=== PATIENT | male | born 1955 | race Caucasian/White ===

== ENCOUNTER 2018-07-11 13:06 | Emergency (ER) | payer MEDICAID ==
[~2018-07-11] VITALS: Ht 167.6 cm; Wt 78.7 kg
[2018-07-11 13:12] VITALS: Ht 167.6 cm; Wt 78.7 kg
--- NOTE | 2018-07-11 13:51 | ERD ---
ER Documentation Chief Complaint Chief Complaint fever x 2 days HPI The patient is a 63-year-old male, presenting to the ER because of fever, nausea, painful urination, intermittent cough for the last day. He denies chest pain, dyspnea, abdominal pain, vomiting, diarrhea. He does not smoke nor drink Past medical history: Hypertension Past surgical history: None ROS All systems reviewed and are negative except as per history of present illness. Medications Home Meds Active Scripts Ibuprofen* (Motrin*) 600 Mg Tab, 600 MG PO Q6H PRN for PAIN AND OR ELEVATED TEMP, #30 TAB Prov:BEATRICE PATRICIO MD 07/11/18 Azithromycin* (Zithromax*) 250 Mg Tablet, 250 MG PO .ZPACK DIRECTED, #6 TAB TAKE 500 MG (2 TABS) THE FIRST DAY THEN 250 MG (1 TAB) DAYS 2-5 Prov:BEATRICE PATRICIO MD 07/11/18 Amoxicillin/Potassium Clav (Amox-Clav 875-125 mg Tablet) 875-125 mg Tab, 1 TAB PO BID for 10 Days, #20 TAB Prov:BEATRICE PATRICIO MD 07/11/18 Reported Medications Ibuprofen* (Advil*) 200 Mg Capsule, 200 MG PO Q6H PRN for PAIN, CAP 07/11/18 Allergies Allergies: Coded Allergies: No Known Allergy (Unverified , 07/11/18) PMhx/Soc History of Surgery: No Anesthesia Reaction: No Hx Neurological Disorder: No Hx Respiratory Disorders: No Hx Cardiac Disorders: No Hx Psychiatric Problems: No Hx Miscellaneous Medical Probl: No Hx Alcohol Use: No Hx Substance Use: No Hx Tobacco Use: No Physical Exam Vitals Vital Signs Date Temp Pulse Resp B/P (MAP) Pulse Ox O2 O2 Flow FiO2 Time Delivery Rate 07/11/18 88 22 143/81 96 Room Air 16:30 (101) 07/11/18 100.6 14:29 07/11/18 100.6 113 20 165/88 96 13:12 (113) Physical Exam Const: No acute distress. Head: Atraumatic. Eyes: Normal Conjunctiva. ENT: Normal External Ears, Nose and Mouth. Neck: Full range of motion. No meningismus. Resp: Clear to auscultation bilaterally. Cardio: Regular rate and rhythm. Abd: Soft, non distended, normal bowel sounds, non tender. Skin: No petechiae or rashes. Back: No midline or flank tenderness. Ext: No cyanosis, or edema. Neur: Awake and alert. No focal deficit Psych: Normal Mood and Affect. Result Diagram: 07/11/18 1401 07/11/18 1401 Results 24 hrs Laboratory Tests Test 07/11/18 14:01 07/11/18 14:02 07/11/18 14:45 White Blood Count 9.4 10^3/ul Red Blood Count 4.88 10^6/ul Hemoglobin 15.1 g/dl Hematocrit 43.6 % Mean Corpuscular Volume 89.3 fl Mean Corpuscular Hemoglobin 30.9 pg Mean Corpuscular 34.6 g/dl Hemoglobin Concent Red Cell Distribution Width 12.0 % Platelet Count 196 10^3/UL Mean Platelet Volume 11.3 fl Immature Granulocytes % 0.400 % Neutrophils % 75.2 % Lymphocytes % 13.1 % Monocytes % 10.6 % Eosinophils % 0.2 % Basophils % 0.5 % Nucleated Red Blood Cells % 0.0 /100WBC Immature Granulocytes # 0.040 10^3/ul Neutrophils # 7.1 10^3/ul Lymphocytes # 1.2 10^3/ul Monocytes # 1.0 10^3/ul Eosinophils # 0.0 10^3/ul Basophils # 0.1 10^3/ul Nucleated Red Blood Cells # 0.0 10^3/ul Prothrombin Time 13.7 Sec Prothrombin Time Ratio 1.1 INR International 1.04 Normalized Ratio Activated Partial Thromboplast 29.1 Sec Time Sodium Level 140 mmol/L Potassium Level 3.7 mmol/L Chloride Level 103 mmol/L Carbon Dioxide Level 27 mmol/L Anion Gap 10 Blood Urea Nitrogen 9 mg/dl Creatinine 0.79 mg/dl Est Glomerular Filtrat > 60 mL/min Rate mL/min Glucose Level 109 mg/dl Calcium Level 9.3 mg/dl Total Bilirubin 0.5 mg/dl Direct Bilirubin 0.00 mg/dl Indirect Bilirubin 0.5 mg/dl Aspartate Amino Transf (AST/SGOT) 30 IU/L Alanine 41 IU/L Aminotransferase (ALT/SGPT) Alkaline Phosphatase 82 IU/L Troponin I < 0.012 ng/ml Total Protein 8.4 g/dl Albumin 4.5 g/dl Globulin 3.90 g/dl Albumin/Globulin Ratio 1.15 POC Venous Lactate 1.3 mmol/L Urine Color YELLOW Urine Clarity CLEAR Urine pH 6.0 Urine Specific [place] 1.014 Urine Ketones NEGATIVE mg/dL Urine Nitrite NEGATIVE mg/dL Urine Bilirubin NEGATIVE mg/dL Urine Urobilinogen NEGATIVE mg/dL Urine Leukocyte Esterase NEGATIVE Cel[place]/ul Urine Microscopic RBC 19 /HPF Urine Microscopic WBC 0 /HPF Urine Mucus FEW /HPF Urine Hemoglobin 2+ mg/dL Urine Glucose NEGATIVE mg/dL Urine Total Protein NEGATIVE mg/dl Current Medications Medications Dose Sig/Eric Start Time Status Last (Trade) Ordered Route PRN Stop Time Admin Dose Reason Admin Sodium 2,360 ml BOLUS OVER 2 07/11/18 DC 07/11/18 Chloride HOURS STAT 13:57 07/11/18 14:31 (NS) IV* 13:59 650 mg ONCE STAT 07/11/18 DC 07/11/18 Acetaminophen PO 13:57 07/11/18 14:29 (Tylenol 13:59 Tab) Procedures/MDM EKG: Read by emergency physician Rate/Rhythm: Normal Sinus Rhythm 96 beats/min QRS, ST, T-waves: No ST elevation, nonspecific T abn Impression: Abnormal EKG MEDICAL MAKING DECISION: The patient is a 63-year-old, presenting with acute pneumonia, was treated with Tylenol for fever, normosaline 30 mm/kg IV for cli nical dehydration with good response, is stable for outpatient follow-up The differential diagnoses considered include but are not limited to asthma, COPD, pneumonia, pulmonary embolus, pleural effusion, congestive heart failure. Departure Diagnosis: Primary Impression: PNA (pneumonia) Condition: Good Comments He was discharged with Augmentin and Zithromax I discussed the findings with the patient. I advised the patient to follow-up with the primary physician in about 2-3 days, sooner if needed and return if any concern. Disclaimer: Inadvertent spelling and grammatical errors are likely due to EHR/dictation software use and do not reflect on the overall quality of patient care. Also, please note that the electronic time recorded on this note does not necessarily reflect the actual time of the patient encounter. BEATRICE PATRICIO MD Jul 11, 2018 13:51
[2018-07-11] MEDS ORDERED: SODIUM CHLORIDE 0.9% 1L BAG IV* STA (13:57)
[2018-07-11] MEDS ORDERED: ACETAMINOPHEN 325 MG TAB PO STA (13:57)
[2018-07-11] MEDS ORDERED: IBUP200C11 PO (14:45)
[2018-07-11] MEDS ORDERED: AMOX1TAB10 PO (16:27)
[2018-07-11] MEDS ORDERED: AZIT250T PO (16:28)
[2018-07-11] MEDS ORDERED: IBUP-1542 PO (16:28)
[2018-07-11 16:30] VITALS: BP 143/81; PULSE 88; RESP 22
== END 2018-07-11 17:35 | disposition home or self-care (01) ==
LOC: E/R 13:06
DX: J18.9 Pneumonia, unspecified organism (principal); I10 Essential (primary) hypertension; R07.9 Chest pain, unspecified
CPT/HCPCS: 36415; 71045; 80053; 81001; 83605; 84484; 85025; 85610; 85730; 87040; 87086; 93005; J7030; Z7502; Z7610

== ENCOUNTER 2018-07-19 14:41 | Emergency (ER) | payer MEDICAID ==
[~2018-07-19] VITALS: Ht 162.6 cm; Wt 76.5 kg
[~2018-07-19 14:41] MED LIST: AMOX1TAB10 PO; AZIT250T PO; DIAZ5TAB PO; IBUP-1542 PO; IBUP200C11 PO; NAPR-688 PO
[2018-07-19 14:59] VITALS: BP 169/89; PULSE 87; RESP 18; Ht 162.6 cm; Wt 76.5 kg
[2018-07-19] MEDS ORDERED: BACI28.34 TOP (16:41)
[2018-07-19] MEDS ORDERED: DOCU-144 PO (16:41)
--- NOTE | 2018-07-19 19:40 | ERD ---
ER Documentation Chief Complaint Chief Complaint rectal bleeding X2 days, constipation HPI 63-year-old male with past medical history of hypertension presenting the emergency department complaining of mild blood noted on the toilet paper after bowel movements per the patient is also had constipation and straining with hard stool. Patient denies any abdominal pain, nausea, vomiting, fevers, or other symptoms at this time. Symptoms mild in severity. ROS All systems reviewed and are negative except as per history of present illness. Medications Home Meds Active Scripts Bacitracin* (Bacitracin Zinc Oint*) 28.35 Gm Oint, 1 APPLIC TOP BID, #1 TUB APPLI TO Prov:VALENTINO VIERA PA-C 07/19/18 Docusate Sodium* (Colace*) 100 Mg Capsule, 100 MG PO TID, #30 CAP Prov:VALENTINO VIERA PA-C 07/19/18 Diazepam* (Valium*) 5 Mg Tablet, 5 MG PO Q8 PRN for MUSCLE SPASMS, #20 TAB Prov:DANIS RICO PA-C 10/31/16 Naproxen* (Naproxen*) 500 Mg Tablet, 500 MG PO BID PRN for PAIN, #20 TAB Prov:DANIS RICO PA-C 10/31/16 Allergies Allergies: Coded Allergies: No Known Allergy (Unverified , 10/30/16) PMhx/Soc Medical and Surgical Hx: pt denies Medical Hx History of Surgery: No Hx Neurological Disorder: No Hx Respiratory Disorders: No Hx Cardiac Disorders: No Hx Psychiatric Problems: No Hx Miscellaneous Medical Probl: No Hx Alcohol Use: No Hx Substance Use: No Hx Tobacco Use: No Smoking Status: Never smoker FmHx Family History: No diabetes Physical Exam Vitals Vital Signs Date Temp Pulse Resp B/P (MAP) Pulse Ox O2 O2 Flow FiO2 Time Delivery Rate 07/19/18 98.8 87 18 169/89 97 14:59 (115) Physical Exam Const: No acute distress Head: Atraumatic Eyes: Normal Conjunctiva ENT: Normal External Ears, Nose and Mouth. Neck: Full range of motion. No meningismus. Resp: Clear to auscultation bilaterally Cardio: Regular rate and rhythm, no murmurs Abd: Soft, non tender, non distended. Normal bowel sounds. No rebound tenderness or guarding. No McBurney's point tenderness. RECTAL: Verbal Consent Obtained Sphincter tone is normal. No external hemorrhoids seen. Small anal fissure with mild active bleeding noted at the 12 o'clock position. Skin: No petechiae or rashes Ext: No cyanosis, or edema Neur: Awake and alert Psych: Normal Mood and Affect Procedures/MDM 63-year-old male presenting emergency department with signs and symptoms most consistent with an anal fissure secondary to constipation and straining during bowel movements. No evidence of external hemorrhoids. Patient stable and appropriate for discharge and further treatment as an outpatient. Patient agreed with the diagnosis, plan, need for follow-up, return precautions. No evidence of life-threatening pathology at time of discharge. Patient's blood pressure was elevated (>120/80) but appears stable without evidence of hypertension emergency or urgency. The patient is to follow-up and pursue outpatient monitoring and therapy with their primary care physician within 1 week and return immediately if they have any new, worsening, or concerning symptoms. Departure Diagnosis: Primary Impression: Constipation Additional Impression: Anal fissure Condition: Fair Patient Instructions: Constipation (Adult) [facility] Usted se hickman hecho un examen mdico de control que le indica que no est en jh c ondicin que requiera tratamiento urgente en el Departamento de Emergencia. Un estudio ms profundo y el tratamiento de perez condicin pueden esperar sin ningn riesgo hasta que usted sea atendida/o en el consultorio de perez mdico o jh clnica. Es responsabilidad suya arreglar jh tona para el seguimiento del sno. MANEJO DE CONDICIONES NO URGENTES EN EL FUTURO 1) Si usted tiene un mdico de atencin primaria: Usted debera llamar a perez mdico de atencin primaria antes de venir al departamento de emergencia. Despus de las horas de consultorio, perez doctor o perez asociado/a est disponible por telfono. El mdico o enfermero de tomas en el servicio telefnico puede asesorarle por rufus medio para atender el problema, o son contrario se puede programar jh tona. 2) Si usted no tiene un mdico de atencin primaria: Llame al mdico o clnica de referencia que aparece abajo genie las horas de consultorio para hacer jh tona para que le vean. CLINICAS: [facility] [phone] [facility] [phone] [facility] [phone] [facility]. [place] [phone] [facility]. [place] [id number] [phone] [facility]. [phone] [address] Additional Instructions: Llame al doctor MAANA y lalita jh TONA PARA DENTRO DE 1-2 CASEY.Dgale a la secretaria que nosotros le instruimos hacer esta tona.Avise o llame si perez condicin se empeora antes de la tona. Regresa aqui si peor o no mejor. VALENTINO VIERA PA-C Jul 19, 2018 19:39
== END 2018-07-19 17:13 | disposition home or self-care (01) ==
LOC: FTE 14:41 → MERGE 14:41 → FTE 17:13
DX: K59.00 Constipation, unspecified (principal); K60.2 Anal fissure, unspecified; I10 Essential (primary) hypertension
CPT/HCPCS: 99284

== ENCOUNTER 2018-09-01 21:24 | Emergency (ER) | payer MEDICAID ==
[~2018-09-01] VITALS: Wt 79.2 kg
[~2018-09-01 21:24] MED LIST changes: +BACI28.34 TOP; +DOCU-144 PO
[2018-09-01] MEDS ORDERED: SODIUM CHLORIDE 0.9% 1L BAG IV* STA (22:02)
--- NOTE | 2018-09-01 22:10 | ERD ---
ER Documentation Chief Complaint Chief Complaint FEVER/ VOMIT X'S 2 DAYS HPI 63-year-old male presenting with fever with associated nausea and diarrhea for the past 2 days. He denies any associated vomiting. No runny nose, cough, c hest pain, shortness of breath, or dysuria. Diarrhea is nonbloody. He denies any recent travel or other exposures. No sick contacts. He has only mild abdominal pain intermittently but currently denies any abdominal pain. He was recently diagnosed with pneumonia a few weeks ago but is denying any symptoms of pneumonia at this time. ROS All systems reviewed and are negative except as per history of present illness. Medications Home Meds Active Scripts Ondansetron (Ondansetron Odt) 4 Mg Tab.rapdis, 4 MG PO Q6H PRN for NAUSEA AND/OR VOMITING, #10 TAB Prov:SREE FERMIN MD 09/01/18 Ibuprofen* (Motrin*) 600 Mg Tab, 600 MG PO Q6H PRN for PAIN AND OR ELEVATED TEMP, #30 TAB Prov:SREE FERMIN MD 09/01/18 Ibuprofen* (Motrin*) 600 Mg Tab, 600 MG PO Q6H PRN for PAIN AND OR ELEVATED T EMP, #30 TAB Prov:BEATRICE PATRICIO MD 07/11/18 Discontinued Reported Medications Ibuprofen* (Advil*) 200 Mg Capsule, 200 MG PO Q6H PRN for PAIN, CAP 07/11/18 Discontinued Scripts Bacitracin* (Bacitracin Zinc Oint*) 28.35 Gm Oint, 1 APPLIC TOP BID, #1 TUB APPLI TO Prov:VALENTINO VIERA PA-C 07/19/18 Docusate Sodium* (Colace*) 100 Mg Capsule, 100 MG PO TID, #30 CAP Prov:VALENTINO VIERA PA-C 07/19/18 Azithromycin* (Zithromax*) 250 Mg Tablet, 250 MG PO .DwightPACK DIRECTED, #6 TAB TAKE 500 MG (2 TABS) THE FIRST DAY THEN 250 MG (1 TAB) DAYS 2-5 Prov:BEATRICE PATRICIO MD 07/11/18 Amoxicillin/Potassium Clav (Amox-Clav 875-125 mg Tablet) 875-125 mg Tab, 1 TAB PO BID for 10 Days, #20 TAB Prov:BEATRICE PATRICIO MD 07/11/18 Diazepam* (Valium*) 5 Mg Tablet, 5 MG PO Q8 PRN for MUSCLE SPASMS, #20 TAB Prov:DANIS RICO PA-C 10/31/16 Naproxen* (Naproxen*) 500 Mg Tablet, 500 MG PO BID PRN for PAIN, #20 TAB Prov:DANIS RICO PA-C 10/31/16 Allergies Allergies: Coded Allergies: No Known Allergy (Unverified , 09/01/18) PMhx/Soc Medical and Surgical Hx: pt denies Medical Hx, pt denies Surgical Hx History of Surgery: No Anesthesia Reaction: No Hx Neurological Disorder: No Hx Respiratory Disorders: No Hx Cardiac Disorders: No Hx Psychiatric Problems: No Hx Miscellaneous Medical Probl: No Hx Alcohol Use: No Hx Substance Use: No Hx Tobacco Use: No Smoking Status: Never smoker FmHx Family History: No diabetes Physical Exam Vitals Vital Signs Date Temp Pulse Resp B/P (MAP) Pulse Ox O2 O2 Flow FiO2 Time Delivery Rate 09/02/18 98.3 73 21 133/62 97 Room Air 00:15 (85) 09/01/18 77 18 151/69 97 Room Air 23:34 (96) 09/01/18 101.4 22:34 09/01/18 101.4 93 24 164/84 98 Nasal 2.0 22:18 (110) Cannula 09/01/18 Nasal 2 22:07 Cannula 09/01/18 103.1 114 16 169/69 95 21:42 (102) Physical Exam Const: No acute distress Head: Atraumatic Eyes: Normal Conjunctiva ENT: Normal External Ears, Nose and Mouth. Posterior oropharynx normal without erythema or exudate Neck: Full range of motion. No meningismus. Resp: Clear to auscultation bilaterally Cardio: Regular rate and rhythm, no murmurs Abd: Soft, non tender, non distended. Normal bowel sounds. negative Gutierrez sign. No McBurney's point tenderness Skin: No petechiae or rashes Back: No midline or flank tenderness Ext: No cyanosis, or edema Neur: Awake and alert, normal speech, no facial asymmetry, Psych: Normal Mood and Affect Result Diagram: 09/01/18214409/01/182144 Results 24 hrs Laboratory Tests Test 09/01/18 21:45 09/01/18 21:59 09/01/18 22:02 White Blood Count 12.1 10^3/ul Red Blood Count 4.69 10^6/ul Hemoglobin 14.3 g/dl Hematocrit 41.7 % Mean Corpuscular Volume 88.9 fl Mean Corpuscular Hemoglobin 30.5 pg Mean Corpuscular 34.3 g/dl Hemoglobin Concent Red Cell Distribution Width 12.4 % Platelet Count 184 10^3/UL Mean Platelet Volume 11.2 fl Immature Granulocytes % 0.400 % Neutrophils % 86.3 % Lymphocytes % 6.3 % Monocytes % 6.4 % Eosinophils % 0.3 % Basophils % 0.3 % Nucleated Red Blood Cells % 0.0 /100WBC Immature Granulocytes # 0.050 10^3/ul Neutrophils # 10.5 10^3/ul Lymphocytes # 0.8 10^3/ul Monocytes # 0.8 10^3/ul Eosinophils # 0.0 10^3/ul Basophils # 0.0 10^3/ul Nucleated Red Blood Cells # 0.0 10^3/ul Urine Color YELLOW Urine Clarity CLEAR Urine pH 5.0 Urine Specific [place] 1.020 Urine Ketones NEGATIVE mg/dL Urine Nitrite NEGATIVE mg/dL Urine Bilirubin NEGATIVE mg/dL Urine Urobilinogen NEGATIVE mg/dL Urine Leukocyte Esterase NEGATIVE Celso/ul Urine Microscopic RBC 34 /HPF Urine Microscopic WBC 0 /HPF Urine Hemoglobin 3+ mg/dL Urine Glucose NEGATIVE mg/dL Urine Total Protein NEGATIVE mg/dl Sodium Level 138 mmol/L Potassium Level 3.5 mmol/L Chloride Level 105 mmol/L Carbon Dioxide Level 24 mmol/L Anion Gap 9 Blood Urea Nitrogen 15 mg/dl Creatinine 0.83 mg/dl Est Glomerular Filtrat > 60 mL/min Rate mL/min Glucose Level 143 mg/dl Calcium Level 8.9 mg/dl Total Bilirubin 0.3 mg/dl Direct Bilirubin 0.00 mg/dl Indirect Bilirubin 0.3 mg/dl Aspartate Amino Transf (AST/SGOT) 35 IU/L Alanine 50 IU/L Aminotransferase (ALT/SGPT) Alkaline Phosphatase 84 IU/L Troponin I < 0.012 ng/ml Total Protein 7.9 g/dl Albumin 4.4 g/dl Globulin 3.50 g/dl Albumin/Globulin Ratio 1.25 POC Venous Lactate 1.2 mmol/L Prothrombin Time 13.0 Sec Prothrombin Time Ratio 1.0 INR International 0.97 Normalized Ratio Activated Partial Thromboplast 28.9 Sec Time Current Medications Medications Dose Sig/Eric Start Time Status Last (Trade) Ordered Route PRN Stop Time Admin Dose Reason Admin Sodium 2,380 ml BOLUS OVER 2 09/01/18 DC 09/01/18 Chloride HOURS STAT 22:02 22:07 (NS) IV* 09/01/18 22:03 Ibuprofen 600 mg ONCE ONCE 09/01/18 DC 09/01/18 (Motrin) PO 22:30 22:34 09/01/18 22:31 Ondansetron 4 mg ONCE STAT 09/01/18 DC 09/01/18 HCl (Zofran IV 22:27 22:34 Inj) 09/01/18 22:28 Procedures/MDM EMERGENT LABS AND DIAGNOSTIC STUDIES: Lab Results above were reviewed and interpreted by me. CBC: no anemia or evidence of infection CMP: No evidence of clinically significant electrolyte abnormality, acidosis, renal failure, hypoglycemia, liver disease, or biliary obstruction Lipase: no evidence of pancreatitis Troponin within normal limits, not indicative of cardiac ischemia Lactate within normal limits without evidence of sepsis or tissue hypoperfusion UA: no evidence of infection 12-lead EKG was interpreted by Franca Fermin MD: Sinus tachycardia at 101 bpm Normal axis Normal intervals Inferior T wave abnormality No acute STEMI. Radiology Results as interpreted by Radiology below were reviewed by Ángel Fermin MD: [Radiology Results as read by Radiology] Initial Nursing notes reviewed. Previous Medical Records requested via the Electronic Health Record. EMERGENCY DEPARTMENT COURSE / MEDICAL DECISION MAKING: [] Patient's blood pressure was elevated (>120/80) but appears stable without e vidence of hypertensive emergency or urgency. The patient was counseled about the risks of hypertension and urged to pursue outpatient monitoring and therapy within a week with their primary care physician. Departure Diagnosis: Primary Impression: Acute febrile illness Condition: Stable EKSREE BATEMAN MD Sep 01, 2018 22:10
[2018-09-01] MEDS ORDERED: ONDANSETRON 4 MG INJ IV STA (22:27)
[2018-09-01] MEDS ORDERED: IBUPROFEN 600 MG TAB PO ONE (22:30)
[2018-09-01] MEDS ORDERED: ONDA4TAB14 PO (23:53)
[2018-09-01] MEDS ORDERED: IBUP-1542 PO (23:53)
[2018-09-02 00:15] VITALS: BP 133/62; PULSE 73; RESP 21
== END 2018-09-02 00:15 | disposition home or self-care (01) ==
LOC: E/R 21:24
DX: R50.9 Fever, unspecified (principal); R06.02 Shortness of breath
CPT/HCPCS: 36415; 71045; 80053; 81001; 83605; 84484; 85025; 85610; 85730; 87040; 87086; 93005; 96374; J2405; J7030; Z7502; Z7610

== ENCOUNTER 2019-01-08 04:06 | Emergency (ER) | payer MEDICAID ==
[~2019-01-08] VITALS: Ht 167.6 cm; Wt 78.2 kg
[~2019-01-08 04:06] MED LIST changes: -AMOX1TAB10 PO; -AZIT250T PO; -BACI28.34 TOP; -DIAZ5TAB PO; -DOCU-144 PO; -IBUP200C11 PO; -NAPR-688 PO; +ONDA4TAB14 PO
[2019-01-08 04:13] VITALS: Ht 167.6 cm; Wt 78.2 kg
[2019-01-08] MEDS ORDERED: SOD CHLORIDE 0.9% 500 ML IV STA (05:13)
[2019-01-08] MEDS ORDERED: BELLADONNA/PHENOBARBITAL TAB PO STA (05:13)
[2019-01-08] MEDS ORDERED: ONDANSETRON 4 MG INJ IV STA ×2 (05:13→05:59)
[2019-01-08] MEDS ORDERED: LIDOCAINE/MYLANTA 40 ML BTL PO STA (05:13)
[2019-01-08] MEDS ORDERED: ASPIRIN 81 MG TAB PO ONE (05:30)
[2019-01-08] MEDS ORDERED: morphine 4 MG/ML VIAL IV STA (05:59)
[2019-01-08] MEDS ORDERED: NITROGLYCERIN (SL) 0.4 MG TAB ONE (06:25)
[2019-01-08] MEDS: NITROGLYCERIN (SL) 0.4 MG TAB SL PRN ×3 (06:29→06:51)
[2019-01-08 07:57] VITALS: BP 133/88; PULSE 62; RESP 18
== END 2019-01-08 08:05 | disposition short-term general hospital (02) ==
LOC: E/R 04:06
DX: I10 Essential (primary) hypertension (principal); R11.0 Nausea
CPT/HCPCS: 36415; 71045; 80053; 83690; 83880; 84484; 85025; 93005; 96374; 96375; 96376; J2270; J2405; J7040; Z7502; Z7610